=== PATIENT | female | born 1955 | race Caucasian/White ===

== ENCOUNTER 2017-02-07 19:56 | Emergency (ER) | payer MEDICAID ==
[2017-02-07] MEDS ORDERED: DIPH/PERTUSS(ACELL)/TETANUS VAC/PF 0.5 ML SYR (>=10YO) IM ONE (20:37)
--- NOTE | 2017-02-07 20:40 | ER Document Report ---
ED Medical Screen (RME) - General Chief Complaint: Syncope Stated Complaint: LEFT ARM BLEEDING Time Seen by Provider: 02/07/17 20:36 Notes: 61-year-old female that comes emergency department for chief complaint of mechanical fall, she states that she lost her footing when she got up off of the toilet and pitched forward, she states that she cut her left forearm and she hit her head against the door jam. She denies loss of consciousness. She denies any current headache, she denies passing out. She also on exam has pain in her left hip and left shoulder area. No numbness, no weakness, no vomiting. Patient is on Plavix. Patient is not up-to-date on her tetanus. TRAVEL OUTSIDE OF THE [place] IN LAST 30 DAYS: No - Related Data Allergies/Adverse Reactions: No Known Allergies Allergy (Verified 02/07/17 20:06) Past Medical History - Past Medical History Cardiac Medical History: Reports: Hx Hypercholesterolemia, Hx Hypertension Renal/ Medical History: Denies: Hx Peritoneal Dialysis Past Surgical History: Reports: Hx Tubal Ligation Physical Exam - Vital signs Vitals: Temp Pulse Resp BP Pulse Ox 98.0 F 62 19 127/78 H 97 02/07/17 20:06 02/07/17 20:06 02/07/17 20:06 02/07/17 20:06 02/07/17 20:06 - Extremities General lower extremity: Other - mild left hip/thigh pain - Neurological Neuro grossly intact: Yes Cognition: Normal. 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 - Vital Signs Vital signs: Temp Pulse Resp BP Pulse Ox 98.0 F 62 19 127/78 H 97 02/07/17 20:06 02/07/17 20:06 02/07/17 20:06 02/07/17 20:06 02/07/17 20:06
--- NOTE | 2017-02-07 21:46 | RADIOLOGY REPORT (SQ) ---
EXAM DESCRIPTION: CT HEAD WITHOUT COMPLETED DATE/TIME: 02/07/2017 9:19 pm REASON FOR STUDY: fall, hit head, plavix COMPARISON: 11/20/2015 TECHNIQUE: Axial images acquired through the brain without intravenous contrast. Images reviewed wi th bone, brain and subdural windows. Images stored on PACS. All CT scanners at this facility use dose modulation, iterative reconstruction, and/or weight based d osing when appropriate to reduce radiation dose to as low as reasonably achievable (ALARA). [facility]: Dose Right [facility]: CareDose [facility]: Dose Right [facility]: Teradose 4D [facility]: [employer] RADIATION DOSE: 64.61 mGy. LIMITATIONS: None. FINDINGS: VENTRICLES: Normal size and contour. CEREBRUM: No masses. No hemorrhage. No midline shift. Normal muniz/white matter differentiation. N o evidence for acute infarction. CEREBELLUM: No masses. No hemorrhage. No alteration of density. No evidence for acute infarction. EXTRAAXIAL SPACES: No fluid collections. No masses. ORBITS AND GLOBE: No intra- or extraconal masses. Normal contour of globe without masses. CALVARIUM: No fracture. PARANASAL SINUSES: No fluid or mucosal thickening. SOFT TISSUES: No mass or hematoma. OTHER: No other significant finding. IMPRESSION: No acute intracranial findings. TECHNICAL DOCUMENTATION: JOB ID: [id number] Quality ID # [id number]: Final reports with documentation of one or more dose reduction techniques (e.g., Au tomated exposure control, adjustment of the mA and/or kV according to patient size, use of iterative reconstruction technique) 2010 [employer]- All Rights Reserved
--- NOTE | 2017-02-07 21:48 | RADIOLOGY REPORT (SQ) ---
EXAM DESCRIPTION: CT CERVICAL SPINE WITHOUT COMPLETED DATE/TIME: 02/07/2017 9:21 pm REASON FOR STUDY: fall, head injury, neck pain COMPARISON: None. TECHNIQUE: Axial images acquired through the cervical spine without intravenous contrast. Images re viewed with lung, soft tissue and bone windows. Reconstructed coronal and sagittal MPR images review ed. Images stored on PACS. All CT scanners at this facility use dose modulation, iterative reconstruction, and/or weight based d osing when appropriate to reduce radiation dose to as low as reasonably achievable (ALARA). [facility]: Dose Right [facility]: CareDose [facility]: Dose Right [facility]: Teradose 4D [facility]: [employer] RADIATION DOSE: 17.68 mGy. LIMITATIONS: None. FINDINGS: ALIGNMENT: Anatomic. MINERALIZATION: Normal. VERTEBRAL BODIES: No fractures or dislocation. DISCS: Multilevel disc space narrowing with osteophytes. FACETS, LATERAL MASSES, POSTERIOR ELEMENTS: Facet arthropathy. No fractures. No dislocation. No ac [place] findings. HARDWARE: None in the spine. VISUALIZED RIBS: No fractures. LUNG APICES AND SOFT TISSUES: No significant or acute findings. OTHER: No other significant finding. IMPRESSION: CHRONIC DEGENERATIVE CHANGES. NO ACUTE FINDINGS. TECHNICAL DOCUMENTATION: JOB ID: [id number] Quality ID # [id number]: Final reports with documentation of one or more dose reduction techniques (e.g., Au tomated exposure control, adjustment of the mA and/or kV according to patient size, use of iterative reconstruction technique) 2010 [employer]- All Rights Reserved
--- NOTE | 2017-02-07 21:54 | RADIOLOGY REPORT (SQ) ---
EXAM DESCRIPTION: SHOULDER LEFT 2 OR MORE VIEWS COMPLETED DATE/TIME: 02/07/2017 9:32 pm REASON FOR STUDY: fall, pain COMPARISON: None. NUMBER OF VIEWS: Three views. TECHNIQUE: Internal rotation, external rotation, and Y view images acquired of the left shoulder. LIMITATIONS: None. FINDINGS: MINERALIZATION: Normal. BONES: No acute fracture or dislocation. No worrisome bone lesions. JOINTS: No dislocation. VISUALIZED LUNGS AND RIBS: No pneumothorax. No rib fracture. SOFT TISSUES: No radiopaque foreign body. OTHER: No other significant finding. IMPRESSION: NO RADIOGRAPHIC EVIDENCE OF ACUTE INJURY. TECHNICAL DOCUMENTATION: JOB ID: [id number] [employer]- All Rights Reserved
--- NOTE | 2017-02-07 21:56 | RADIOLOGY REPORT (SQ) ---
EXAM DESCRIPTION: HIP LEFT AP/LATERAL COMPLETED DATE/TIME: 02/07/2017 9:32 pm REASON FOR STUDY: fall, left hip pain COMPARISON: None. NUMBER OF VIEWS: Two views. TECHNIQUE: AP pelvis and additional frog-leg view of the left hip. LIMITATIONS: None. FINDINGS: MINERALIZATION: Normal. LEFT HIP: No fracture or dislocation. No worrisome bone lesions. RIGHT HIP: No fracture or dislocation. No worrisome bone lesions. PUBIS AND ISCHIUM: No fracture. PELVIS: No fracture. SACRUM: No fracture or dislocation. No worrisome bone lesions. LOWER LUMBAR SPINE: No fracture or dislocation. No worrisome bone lesions. No significant disc disea se. SOFT TISSUES: No findings. OTHER: No other significant finding. IMPRESSION: No fracture identified. TECHNICAL DOCUMENTATION: JOB ID: [id number] [employer]- All Rights Reserved
--- NOTE | 2017-02-07 22:18 | ER Document Report ---
ED Fall - General Chief Complaint: Syncope Stated Complaint: LEFT ARM BLEEDING Time Seen by Provider: 02/07/17 20:36 Notes: Patient is a 61-year-old female that comes emergency department for chief complaint of mechanical fall, she states that she lost her footing when she got up off of the toilet and pitched forward, she states that she cut her left forearm and she hit her head against the door jam. She denies loss of consciousness. She denies any current headache, she denies passing out. She also on exam has pain in her left hip and left shoulder area. No numbness, no weakness, no vomiting. Patient is on Plavix. Patient is not up-to-date on her tetanus. TRAVEL OUTSIDE OF THE [place] IN LAST 30 DAYS: No - Related data Allergies/Adverse Reactions: No Known Allergies Allergy (Verified 02/07/17 20:06) Past Medical History - General Information source: Patient - t - Social History Smoking Status: Never Smoker Frequency of alcohol use: None Drug Abuse: None Lives with: Family Family History: Reviewed & Not Pertinent Patient has suicidal ideation: No Patient has homicidal ideation: No - Past Medical History Cardiac Medical History: Reports: Hx Hypercholesterolemia, Hx Hypertension Renal/ Medical History: Denies: Hx Peritoneal Dialysis Past Surgical History: Reports: Hx Tubal Ligation Review of Systems - Review of Systems Constitutional: No symptoms reported EENT: No symptoms reported Cardiovascular: See HPI Respiratory: No symptoms reported Gastrointestinal: No symptoms reported Genitourinary: No symptoms reported Female Genitourinary: No symptoms reported Musculoskeletal: See HPI Skin: See HPI Hematologic/Lymphatic: No symptoms reported Neurological/Psychological: See HPI Physical Exam - Vital signs Vitals: Temp Pulse Resp BP Pulse Ox 98.0 F 62 19 127/78 H 97 02/07/17 20:06 02/07/17 20:06 02/07/17 20:06 02/07/17 20:06 02/07/17 20:06 Interpretation: Normal - General General appearance: Appears well, Alert In distress: None - Patient is alert, conversational, well-appearing - HEENT Head: Normocephalic, Atraumatic. No: Abrasions, Alcantar's sign, Ecchymosis, Open wounds Eyes: Normal Conjunctiva: Normal Extraocular movements intact: Yes Eyelashes: Normal Pupils: PERRL Nasal: Normal Mouth/Lips: Normal Mucous membranes: Normal Pharynx: Normal Neck: Normal - Respiratory Respiratory status: No respiratory distress Chest status: Nontender Breath sounds: Normal. No: Decreased air movement, Wheezing Chest palpation: Normal - Cardiovascular Rhythm: Regular Heart sounds: Normal auscultation Murmur: No - Abdominal Inspection: Normal Distension: No distension Bowel sounds: Normal Tenderness: Nontender Organomegaly: No organomegaly - Back Back: Normal, Nontender - Extremities General upper extremity: Nontender, Normal ROM, Normal strength, Other - There is a small 1 cm abrasion over the left upper forearm, small area just through the epidermis, no partial thickness wounds, no repairable wounds, no current bleeding, normal upper extremity exam otherwise General lower extremity: Normal inspection, Nontender, Normal color, Normal ROM , Normal temperature, Normal weight bearing. No: Edy's sign - Neurological Neuro grossly intact: Yes Cognition: Normal Orientation: AAOx4 [place] Coma Scale Eye Opening: Spontaneous [place] Coma Scale Verbal: Oriented [place] Coma Scale Motor: Obeys Commands [place] Coma Scale Total: 15 Speech: Normal Motor strength normal: LUE, RUE, LLE, RLE Sensory: Normal - Psychological Associated symptoms: Normal affect, Normal mood - Skin Skin Temperature: Warm Skin Moisture: Dry Skin Color: Normal Course - Re-evaluation Re-evalutation: Patient alert, well-appearing, denying any headache, denying any symptoms on my reevaluation. Small abrasion over the left forearm, not requiring any sutures, this was cleaned and dressed. Patient's significant other at bedside, I discussed head injury precautions and monitoring, I discussed return precautions in detail. Patient and state they are ready to go home and also understanding/agreement. - Vital Signs Vital signs: Temp Pulse Resp BP Pulse Ox 98.0 F 68 18 130/80 H 97 02/07/17 20:06 02/07/17 22:28 02/07/17 22:28 02/07/17 22:28 02/07/17 20:06 - Diagnostic Test Radiology reviewed: Image reviewed, Reports reviewed Discharge - Discharge Clinical Impression: Left hip pain, Neck pain Fall Qualifiers: Encounter type: initial encounter Qualified Code(s): W19.XXXA - Unspecified fall, initial encounter Abrasion of left forearm Qualifiers: Encounter type: initial encounter Qualified Code(s): S50.812A - Abrasion of left forearm, initial encounter Left shoulder pain Qualifiers: Chronicity: acute Qualified Code(s): M25.512 - Pain in left shoulder Head injury Qualifiers: Encounter type: initial encounter Qualified Code(s): S09.90XA - Unspecified injury of head, initial encounter Condition: Stable Disposition: HOME, SELF-CARE Additional Instructions: Imaging shows no abnormalities including no bleeding in your brain and no fractures. Keep a clean dressing with antibiotic over the abrasion area, avoid scrubbing the area. Follow-up within the next several days with primary care for a reevaluation. Please follow head injury precautions listed below and return immediately for any concerning symptoms. Head Injury Precautions At this point, there is no evidence that your head injury is serious. Observation is necessary, however. Take only clear liquids for the first few hours, unless told otherwise by the doctor. If no pain medication was prescribed, you may take acetaminophen according to the directions on the bottle. Do not take any medication that may alter your level of alertness (unless you've discussed it with the doctor first) . Limit activity for the first 24 hours. Bed rest is best. During the first 24 hours, check to see approximately every two to three hours that the patient is easily arousable, responds normally, and can perform common tasks such as walking without difficulty. Contact your doctor or go to the hospital if any of the following things occur: Persistent vomiting, difficulty in arousing the patient, worsening or continued headache, or failure to improve as expected. Head injuries can cause symptoms that persist for a few days or even a few weeks. Referrals: CHRISTIAN VELÁSQUEZ, VICE PRESIDENT [facility] [Primary Care Provider] - Follow up as needed
[2017-02-07 22:29] VITALS: BP 130/80
--- NOTE | 2017-02-08 07:52 | EKG REPORT ---
SEVERITY:- NORMAL ECG - SINUS RHYTHM : Confirmed by: Cristian Velasco MD 08-Feb-2017 07:52:05
== END 2017-02-07 22:29 | disposition home or self-care (01) ==
LOC: ER 19:56
DX: S50.812A Abrasion of left forearm, initial encounter (principal); S09.90XA Unspecified injury of head, initial encounter; M25.512 Pain in left shoulder; M25.552 Pain in left hip; M54.2 Cervicalgia; W18.39XA Other fall on same level, initial encounter; Y93.89 Activity, other specified; I10 Essential (primary) hypertension
CPT/HCPCS: 70450; 72125; 90471; 90715; 93005; 93010; 99284

== ENCOUNTER → 2017-07-18 | Outpatient (CLI) | payer MEDICAID ==
--- NOTE | 2017-07-18 11:19 | WOMENS IMAGING REPORT ---
EXAM DESCRIPTION: BILAT SCREENING MAMMO W/CAD COMPLETED DATE/TIME: 07/18/2017 7:56 am REASON FOR STUDY: SCREENING MAMMO Z12.31 ENCNTR SCREEN MAMMOGRAM FOR MALIGNANT NEOPLASM OF JACQUI COMPARISON: 2008, 2011 TECHNIQUE: Standard craniocaudal and mediolateral oblique views of each breast recorded using digita l acquisition. LIMITATIONS: None. FINDINGS: No masses, calcifications or architectural distortion. No areas of suspicion. Read with the assistance of CAD. .[facility] - R2 Cenova Version 1.3 .[facility] - R2 Cenova Version 1.3 .[facility] - R2 Cenova Version 2.4 .[facility] - R2 Cenova Version 2.4 .[facility] - R2 Account Executive Trainee Version 9.2 IMPRESSION: NORMAL MAMMOGRAM. BIRADS 1. BREAST DENSITY: b. There are scattered areas of fibroglandular density. BIRAD: 1 NEGATIVE RECOMMENDATION: ROUTINE SCREENING COMMENT: The patient has been notified of the results by letter per MQSA requirements. Additional no tification policies are in place for contacting patient with suspicious or incomplete findings. Quality ID #[id number]: The [employer] recommends an annual screening mammogram for women aged 40 years or over. This facility utilizes a reminder system to ensure that all patients receive reminder letters, and/or direct phone calls for appointments. This includes reminders for routine scr eening mammograms, diagnostic mammograms, or other Breast Imaging Interventions when appropriate. Th is patient will be placed in the appropriate reminder system. The [employer] (ACR) has developed recommendations for screening MRI of the breast s in certain patient populations, to be used in conjunction with mammography. Breast MRI surveillanc e may be appropriate for women with more than 20% lifetime risk of developing breast cancer as deter mined by genetic testing, significant family history of the disease, or history of mantle radiation f or Hodgkins Disease. ACR Practice Guidelines 2008. TECHNICAL DOCUMENTATION: FINDING NUMBER: (1) ASSESSMENT: (1) JOB ID: [id number] [employer]- All Rights Reserved
== END ==
LOC: WI 07:39
PROVIDERS: ATTEND Nurse Practitioner Family
DX: Z12.31 Encounter for screening mammogram for malignant neoplasm of breast (principal)
CPT/HCPCS: 77067; G0202

== ENCOUNTER → 2018-08-24 | Outpatient (CLI) | payer MEDICAID, MEDICARE ==
--- NOTE | 2018-08-24 09:23 | WOMENS IMAGING REPORT ---
EXAM DESCRIPTION: BILAT SCREENING MAMMO W/CAD COMPLETED DATE/TIME: 08/24/2018 9:01 am REASON FOR STUDY: SCREENING MAMMO Z12.31 ENCNTR SCREEN MAMMOGRAM FOR MALIGNANT NEOPLASM OF JACQUI COMPARISON: [id number] TECHNIQUE: Standard craniocaudal and mediolateral oblique views of each breast recorded using digita l acquisition. LIMITATIONS: None. FINDINGS: No masses, calcifications or architectural distortion. No areas of suspicion. Read with the assistance of CAD. .[facility] - R2 Cenova Version 1.3 .[facility] - R2 Cenova Version 1.3 .[facility] - R2 Cenova Version 2.4 .[facility] - R2 Cenova Version 2.4 .[facility] - R2 Toe Pounder Version 9.2 IMPRESSION: NORMAL MAMMOGRAM. BIRADS 1. BREAST DENSITY: b. There are scattered areas of fibroglandular density. BIRAD: 1 NEGATIVE RECOMMENDATION: ROUTINE SCREENING COMMENT: The patient has been notified of the results by letter per MQSA requirements. Additional no tification policies are in place for contacting patient with suspicious or incomplete findings. Quality ID #225: The [employer] recommends an annual screening mammogram for women aged 40 years or over. This facility utilizes a reminder system to ensure that all patients receive reminder letters, and/or direct phone calls for appointments. This includes reminders for routine scr eening mammograms, diagnostic mammograms, or other Breast Imaging Interventions when appropriate. Th is patient will be placed in the appropriate reminder system. The [employer] (ACR) has developed recommendations for screening MRI of the breast s in certain patient populations, to be used in conjunction with mammography. Breast MRI surveillanc e may be appropriate for women with more than 20% lifetime risk of developing breast cancer as deter mined by genetic testing, significant family history of the disease, or history of mantle radiation f or Hodgkins Disease. ACR Practice Guidelines 2008. TECHNICAL DOCUMENTATION: FINDING NUMBER: (1) ASSESSMENT: (1) JOB ID: [id number] [employer]- All Rights Reserved Reading location - IP/workstation name: [email or web address]
== END ==
LOC: WI 08:20
PROVIDERS: ATTEND Family Medicine
DX: Z12.31 Encounter for screening mammogram for malignant neoplasm of breast (principal)
CPT/HCPCS: 77067

== ENCOUNTER 2019-05-25 14:53 | Emergency (ER) | payer MEDICARE ==
--- NOTE | 2019-05-25 15:24 | ER Document Report ---
ED Medical Screen (RME) - General Chief Complaint: Fall Injury Stated Complaint: HEAD INJURY Time Seen by Provider: 05/25/19 15:22 Primary Care Provider: MEME MCCABE MD [Primary Care Provider] - Follow up as needed Mode of Arrival: Ambulatory Information source: Patient Notes: 63-year-old female presented to ED for complaint of head injury. She states she went to sit on a chair that rolled out from under her she fell hitting her head on the entertainment center. She states she had no loss of consciousness no nausea vomiting she is dizzy and on Plavix. She states she had a stroke November 18, 2015 has a history of high blood pressure cholesterol and diabetes she does not smoke she drinks on the weekends does not do any drugs does not work lives with her family. States her symptoms surgeries are bilateral tubal ligation and tonsillectomy. Patient is alert oriented respirations regular and unlabored speaking in full sentences walking with a even steady gait. She refused Tylenol at this time. I have greeted and performed a rapid initial assessment of this patient. A comprehensive ED assessment and evaluation of the patient, analysis of test results and completion of medical decision making process will be conducted by an additional ED providers. TRAVEL OUTSIDE OF THE [place] IN LAST 30 DAYS: No - Related Data Allergies/Adverse Reactions: No Known Allergies Allergy (Verified 05/25/19 14:53) Past Medical History - Social History Frequency of alcohol use: Social Drug Abuse: None - Past Medical History Cardiac Medical History: Reports: Hx Hypercholesterolemia, Hx Hypertension Renal/ Medical History: Denies: Hx Peritoneal Dialysis Past Surgical History: Reports: Hx Tubal Ligation Physical Exam - Vital signs Vitals: Temp Pulse Resp BP Pulse Ox 97.8 F 67 16 134/67 H 94 05/25/19 15:07 05/25/19 15:07 05/25/19 15:07 05/25/19 15:07 05/25/19 15:07 Course - Vital Signs Vital signs: Temp Pulse Resp BP Pulse Ox 97.8 F 67 16 134/67 H 94 05/25/19 15:07 05/25/19 15:07 05/25/19 15:07 05/25/19 15:07 05/25/19 15:07 Doctor's Discharge - Discharge Referrals: MEME MCCABE MD [Primary Care Provider] - Follow up as needed
--- NOTE | 2019-05-25 15:53 | RADIOLOGY REPORT (SQ) ---
EXAM DESCRIPTION: CT HEAD WITHOUT COMPLETED DATE/TIME: 05/25/2019 3:45 pm REASON FOR STUDY: head injury on plavix COMPARISON: 02/07/2017 TECHNIQUE: Axial images acquired through the brain without intravenous contrast. Images reviewed wi th bone, brain and subdural windows. Additional sagittal and coronal reconstructions were generated. Images stored on PACS. All CT scanners at this facility use dose modulation, iterative reconstruction, and/or weight based d osing when appropriate to reduce radiation dose to as low as reasonably achievable (ALARA). [facility]: Dose Right [facility]: CareDose [facility]: Dose Right [facility]: Teradose 4D [facility]: [employer] RADIATION DOSE: CT Rad equipment meets quality standard of care and radiation dose reduction techniq ues were employed. CTDIvol: 53.2 mGy. DLP: 964 mGy-cm. mGy. LIMITATIONS: None. FINDINGS: VENTRICLES: Normal size and contour. CEREBRUM: No masses. No hemorrhage. No midline shift. No evidence for acute infarction. Normal gra y/white matter differentiation. No areas of low density in the white matter. CEREBELLUM: No masses. No hemorrhage. No alteration of density. No evidence for acute infarction. EXTRAAXIAL SPACES: No fluid collections. No masses. ORBITS AND GLOBE: No intra- or extraconal masses. Normal contour of globe without masses. CALVARIUM: No fracture. PARANASAL SINUSES: No fluid or mucosal thickening. SOFT TISSUES: No mass or hematoma. OTHER: No other significant finding. IMPRESSION: NORMAL BRAIN CT WITHOUT CONTRAST. EVIDENCE OF ACUTE STROKE: NO. COMMENT: Quality ID # [id number]: Final reports with documentation of one or more dose reduction techniques (e.g., Automated exposure control, adjustment of the mA and/or kV according to patient size, use of iterative reconstruction technique) TECHNICAL DOCUMENTATION: JOB ID: [id number] [employer]- All Rights Reserved Reading location - IP/workstation name: [email or web address]
--- NOTE | 2019-05-25 16:04 | ER Document Report ---
ED Fall - General Chief Complaint: Fall Injury Stated Complaint: HEAD INJURY Time Seen by Provider: 05/25/19 15:22 Primary Care Provider: MEME MCCABE MD [Primary Care Provider] - Follow up as needed Mode of Arrival: Ambulatory Information source: Patient TRAVEL OUTSIDE OF THE [place] IN LAST 30 DAYS: No - HPI Occurred: Just prior to arrival Where: Home Context: Fell from sitting Location of injury/pain: Head. No: Abdomen, Ankle, Back, Breast, Buttocks, Chest, Elbow, Epigastric, Face, Finger, Flank, Foot, Hand, Hip, Mouth, Knee, Neck, Pelvic, Penis, Perineum, Rectum, Shoulder, Testicle, Thigh, Throat, Trunk, Vagina, Wrist, Upper extremity, Lower extremity, Other Quality of pain: Achy, Sharp Severity: Moderate Pain Level: 1 - Related data Allergies/Adverse Reactions: No Known Allergies Allergy (Verified 05/25/19 14:53) Past Medical History - General Information source: Patient - Social History Smoking Status: Never Smoker Frequency of alcohol use: Social Drug Abuse: None Family History: Reviewed & Not Pertinent Patient has suicidal ideation: No Patient has homicidal ideation: No - Past Medical History Cardiac Medical History: Reports: Hx Hypercholesterolemia, Hx Hypertension Renal/ Medical History: Denies: Hx Peritoneal Dialysis Past Surgical History: Reports: Hx Tubal Ligation Review of Systems - Review of Systems Constitutional: No symptoms reported Cardiovascular: No symptoms reported Respiratory: No symptoms reported Gastrointestinal: No symptoms reported Musculoskeletal: No symptoms reported. denies: See HPI, Back pain, Gout, Joint pain, Joint swelling, Muscle pain, Muscle stiffness, Neck pain, Deformity, Leg swelling, Ankle swelling, Other Neurological/Psychological: Headaches. denies: No symptoms reported, See HPI, Confusion, Dementia, Depression, Hallucinations, Anxiety, Homicidal ideation, Sensory change, Weakness, Gait changes, Loss of power, Paralysis, Seizure, Lost consciousness, Speech impairment, Numbness, Suicidal ideation, Tingling, Tremor, Other Physical Exam - Vital signs Vitals: Temp Pulse Resp BP Pulse Ox 97.8 F 67 16 134/67 H 94 05/25/19 15:07 05/25/19 15:07 05/25/19 15:07 05/25/19 15:07 05/25/19 15:07 Notes: PHYSICAL EXAMINATION: GENERAL: Well-appearing, well-nourished and in no acute distress. HEAD: r temporal area with small hematoma on scalp. normocephalic. EYES: Pupils equal round and reactive to light, extraocular movements intact, sclera anicteric, conjunctiva are normal. ENT: nares patent, oropharynx clear without exudates. Moist mucous membranes. NECK: Normal range of motion, supple without lymphadenopathy no C, L, T, or S spine tenderness LUNGS: Breath sounds clear to auscultation bilaterally and equal. No wheezes rales or rhonchi. HEART: Regular rate and rhythm without murmurs ABDOMEN: Soft, nontender, normoactive bowel sounds. No guarding, no rebound. No masses appreciated. EXTREMITIES: Normal range of motion, no pitting or edema. No cyanosis. NEUROLOGICAL: No focal neurological deficits. Moves all extremities spontaneously and on command. PSYCH: Normal mood, normal affect. SKIN: Warm, Dry, normal turgor, no rashes or lesions noted. Course - Vital Signs Vital signs: Temp Pulse Resp BP Pulse Ox 97.8 F 67 16 134/67 H 94 05/25/19 15:07 05/25/19 15:07 05/25/19 15:07 05/25/19 15:07 05/25/19 15:07 - Transfer of Care Notes: 05/25/19 16:02 CT negative told patient that if she starts having vomiting severe headache trouble walking neurological changes to return immediately Discharge - Discharge Clinical Impression: Concussion, Scalp hematoma Condition: Good Disposition: HOME, SELF-CARE Instructions: Concussion ([facility]), Scalp Hematoma ([facility]) Additional Instructions: Ice in the towel for 20 minutes 3 times a day return if vomiting severe headache trouble with walking or condition worsens Prescriptions: Hydrocodone/Acetaminophen [[place] 5-325 mg Tablet] 1 tab PO Q4 PRN #15 tablet PRN Reason: Referrals: MEME MCCABE MD [Primary Care Provider] - Follow up as needed
[2019-05-25 16:18] LABS: PROTHROMBIN TIME 13.2 SEC (11.4-15.4)
[2019-05-25 16:19] LABS: PARTIAL THROMBOPLASTIN TIME 29.3 SEC (23.5-35.8)
[2019-05-25 16:49] VITALS: BP 129/72
== END 2019-05-25 16:49 | disposition home or self-care (01) ==
LOC: ER 14:53
DX: S06.0X9A Concussion with loss of consciousness of unspecified duration, initial encounter (principal); W17.89XA Other fall from one level to another, initial encounter; Y92.009 Unspecified place in unspecified non-institutional (private) residence as the place of occurrence of the external cause; E78.00 Pure hypercholesterolemia, unspecified; I10 Essential (primary) hypertension; Z98.51 Tubal ligation status
CPT/HCPCS: 36415; 70450; 85610; 85730; 99284

== ENCOUNTER 2019-10-05 07:37 | Day surgery (SDC) | payer MEDICARE ==
[2019-10-05] MEDS ORDERED: PROPOFOL INJ 200 MG/20 ML VIAL IV ONE (07:46)
[2019-10-05 10:22] VITALS: BP 153/87
--- NOTE | 2019-10-05 17:03 | Operative Report ---
Operative Report DATE OF SURGERY: 10/05/19 Operative Report: The risk, benefits and alternatives of the procedure including the risk of bleeding, perforation requiring surgery have been explained to the patient in detail and informed consent has been obtained. The patient is placed in the left lateral decubital position. Timeout was called. Propofol medication is administered. Rectal examination is done which did not reveal any masses, tears or fissures. An Olympus videoscope was introduced into the patient's rectum. Scope was then carefully advanced all the way to the cecum. The cecum was identified by the usual anatomical landmarks of the ileocecal valve as well as the appendiceal office. Photodocumentation is obtained. Scope was then sequentially pulled back via the various segments of the colon including the ascending colon, hepatic flexure, transverse colon, splenic flexure, descending colon finally in to the rectosigmoid portions of the colon. Retroflexion maneuvers performed. PREOPERATIVE DIAGNOSIS: Surveillance colonoscopy due to history of polyps POSTOPERATIVE DIAGNOSIS: right colon inflammation noted status post biopsy. Diverticulosis without any evidence of diverticulitis. Internal hemorrhoids OPERATION: Colonoscopy with biopsy SURGEON: SAURABH PALOMINO ANESTHESIA: LMAC TISSUE REMOVED OR ALTERED: As noted above. COMPLICATIONS: None. ESTIMATED BLOOD LOSS: None. INTRAOPERATIVE FINDINGS: As noted above. PROCEDURE: Patient tolerated the procedure well. No immediate postprocedure complications are noted. Patient is discharged in good condition. Discharge date 10/05/2019. Discharge diet: Regular. Discharge activity: Regular. 2 to 3-week follow-up to discuss findings. Consider 10-year surveillance colonoscopy if biopsies are negative If there is a family history then 5-year surveillance colonoscopy
== END 2019-10-05 10:25 | disposition home or self-care (01) ==
LOC: END 07:37
PROVIDERS: ATTEND Internal Medicine Gastroenterology
DX: Z12.11 Encounter for screening for malignant neoplasm of colon (principal); K52.9 Noninfective gastroenteritis and colitis, unspecified; K64.8 Other hemorrhoids; K57.30 Diverticulosis of large intestine without perforation or abscess without bleeding; Z79.899 Other long term (current) drug therapy; I10 Essential (primary) hypertension; E07.9 Disorder of thyroid, unspecified; I69.851 Hemiplegia and hemiparesis following other cerebrovascular disease affecting right dominant side; Z85.828 Personal history of other malignant neoplasm of skin; R01.0 Benign and innocent cardiac murmurs
CPT/HCPCS: 45380; 88305 ×2; 00812; J2704; 812

== ENCOUNTER → 2020-03-07 | Outpatient (CLI) | payer MEDICARE ==
--- NOTE | 2020-03-07 09:21 | WOMENS IMAGING REPORT ---
EXAM DESCRIPTION: BILAT SCREENING MAMMO W/CAD IMAGES COMPLETED DATE/TIME: 03/07/2020 9:06 am REASON FOR STUDY: Z12.31 ENCOUNTER FOR SCREENING MAMMOGRAM FOR MALIGNANT NEOPLASM OF BREAST Z12.31 ENCNTR SCREEN MAMMOGRAM FOR MALIGNANT NEOPLASM OF JACQUI COMPARISON: 2016 and subsequent. EXAM PARAMETERS: Standard craniocaudal and mediolateral oblique views of each breast recorded using digital acquisition. Read with the assistance of CAD. .[facility], LATER [facility] - [place] [employer] Version 9.2 LIMITATIONS: None. FINDINGS: No suspicious masses, suspicious calcifications or architectural distortion. No areas of c oncern. IMPRESSION: NEGATIVE MAMMOGRAM. BIRADS 1 BREAST DENSITY: b. There are scattered areas of fibroglandular density. BIRAD: ASSESSMENT: 1 NEGATIVE RECOMMENDATION: ROUTINE SCREENING COMMENT: The patient has been notified of the results by letter per MQSA requirements. Additional no tification policies are in place for contacting patient with suspicious or incomplete findings. Quality ID #[id number]: The [employer] recommends an annual screening mammogram for women aged 40 years or over. This facility utilizes a reminder system to ensure that all patients receive reminder letters, and/or direct phone calls for appointments. This includes reminders for routine scr eening mammograms, diagnostic mammograms, or other Breast Imaging Interventions when appropriate. Th is patient will be placed in the appropriate reminder system. TECHNICAL DOCUMENTATION: FINDING NUMBER: (1) ASSESSMENT: (1) JOB ID: [id number] 2010 [employer]- All Rights Reserved Reading location - IP/workstation name: [email or web address]
== END ==
LOC: WI 08:47
PROVIDERS: ATTEND Family Medicine
DX: Z12.31 Encounter for screening mammogram for malignant neoplasm of breast (principal)
CPT/HCPCS: 77067